=== PATIENT | male | born 1985 | race Two or more races ===

== ENCOUNTER 2020-06-15 14:21 | Emergency (ER) | payer OTHER ==
[2020-06-15] MEDS ORDERED: NORMAL SALINE 1000 ML 1,000 ML IV ONE ×2 (14:41→16:23)
[2020-06-15] MEDS ORDERED: ONDANSETRON HCL INJ/PF 4 MG/2 ML SDV IV ONE (14:45)
--- NOTE | 2020-06-15 14:46 | ER Document Report ---
ED General - General Chief Complaint: Heat Exposure Stated Complaint: BODY CRAMPING Primary Care Provider: CELIA FERNANDEZ PA-C [Primary Care Provider] - Follow up as needed Mode of Arrival: Medic Information source: Patient, Emergency Med Personnel Notes: Patient is a 35-year-old male presenting to the emergency department chief complaint of heat cramps. 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 Patient states it is intermittent patient states he has drank water Pedialyte and Gatorade and was given a water bath and ice to the groin and axilla. Patient denies travel history trauma history sick contacts bad food exposure. Patient denies any recent heat exposure. Patient states that despite all the fluid intake he has not urinated in several hours. TRAVEL OUTSIDE OF THE [place] IN LAST 30 DAYS: No - HPI Onset: Just prior to arrival Onset/Duration: Persistent Quality of pain: Cramping Severity: Moderate Pain Level: 4 Associated symptoms: None Exacerbated by: Movement Relieved by: Denies Similar symptoms previously: No Recently seen / treated by doctor: No - Related Data Allergies/Adverse Reactions: No Known Allergies Allergy (Unverified 06/15/20 15:10) Past Medical History - General Information source: Patient - Social History Smoking Status: Current Every Day Smoker Cigarette use (# per day): Yes Chew tobacco use (# tins/day): No Smoking Education Provided: Yes Frequency of alcohol use: Rare Drug Abuse: Marijuana Family History: Reviewed & Not Pertinent Patient has suicidal ideation: No Patient has homicidal ideation: No Musculoskeletal Medical History: Reports Hx Musculoskeletal Trauma Psychiatric Medical History: Reports: Hx Post Traumatic Stress Disorder Review of Systems - Review of Systems Constitutional: No symptoms reported EENT: No symptoms reported Cardiovascular: No symptoms reported Respiratory: No symptoms reported Gastrointestinal: See HPI Genitourinary: Retention Male Genitourinary: No symptoms reported Musculoskeletal: See HPI Skin: No symptoms reported Hematologic/Lymphatic: No symptoms reported Neurological/Psychological: No symptoms reported Physical Exam - Vital signs Vitals: Temp 97.8 F 06/15/20 14:21 - Notes Notes: PHYSICAL EXAMINATION: GENERAL: Patient is a 35-year-old male in obvious distress secondary to severe muscle cramps HEAD: Atraumatic, normocephalic. EYES: Pupils equal round and reactive to light, extraocular movements intact, sclera anicteric, conjunctiva are normal. ENT: nares patent, oropharynx clear without exudates. Moist mucous membranes. NECK: Normal range of motion, supple without lymphadenopathy, no appreciable JVD LUNGS: Lungs clear to auscultation bilaterally and equal. No wheezes rales or rhonchi. HEART: Tachycardic rate and rhythm without murmurs ABDOMEN: Soft, diffusely tender, normal bowel sounds. No guarding, no rebound. No masses appreciated. EXTREMITIES: Active full range of motion, no pitting or edema. No cyanosis. 2+ pulses x4 however patient is experiencing intermittent muscle cramps to upper and lower extremities. NEUROLOGICAL: No focal neurological deficits. Moves all extremities spontaneously and on command. SKIN: Warm, Dry, and intact. Normal turgor, no rashes or lesions noted. Course - Re-evaluation Re-evalutation: 06/15/20 16:24 On reevaluation the patient is sitting up in bed much more alert is having better movement to the extremities he is still cramping. Patient is tolerated p.o. fluids and will be trying to eat a sandwich. Patient has received 2 bags IV normal saline and will receive a third at 125 cc an hour labs will be redrawn at 1700 for evaluation of improvement. 06/15/20 18:28 Patient has been reevaluated multiple times while in the emergency department. Patient has been maintained on a telemetry monitor and has gradually improved his alertness as well as range of motion to extremities. Patient has tolerated both food and fluids p.o. Reevaluation of the patient's labs do show a gradual improvement patient is alert oriented in no acute distress family member at bedside is likewise responsible and I feel comfortable discharging the patient at this point in time. Patient is agreeable with discharge understands not to go out into the heat over the next several days increase fluid hydration and return for worsening symptoms. Patient is stable at time of discharge. - Vital Signs Vital signs: Temp Pulse Resp BP Pulse Ox 97.8 F 18 142/81 H 99 06/15/20 15:04 06/15/20 17:02 06/15/20 17:02 06/15/20 17:02 - Laboratory Result Diagrams: 06/15/20 17:03 06/15/20 17:03 Laboratory results interpreted by me: 06/15/20 06/15/20 06/15/20 15:00 15:00 16:15 WBC Lymph % (Auto) Absolute Neuts (auto) Seg Neutrophils % Sodium Carbon Dioxide 19 L BUN 22 H Creatinine 2.08 H Est GFR ( Amer) 44 L Est GFR (MDRD) Non-Af 37 L Lactic Acid 7.3 H Calcium 10.3 H Total Bilirubin 2.2 H Creatine Kinase 309 H Total Protein 8.6 H Albumin 5.3 H Urine Blood SMALL H 06/15/20 06/15/20 17:03 17:03 WBC 11.7 H Lymph % (Auto) 9.2 L Absolute Neuts (auto) 9.6 H Seg Neutrophils % 82.0 H Sodium 135.7 L Carbon Dioxide BUN 22 H Creatinine 1.60 H Est GFR ( Amer) Est GFR (MDRD) Non-Af 50 L Lactic Acid Calcium Total Bilirubin 2.0 H Creatine Kinase Total Protein Albumin Urine Blood - Diagnostic Test Radiology reviewed: Image reviewed, Reports reviewed - EKG Interpretation by Me EKG shows normal: Sinus rhythm Rate: Normal Rhythm: NSR When compared to previous EKG there are: Previous EKG unavailable Critical Care Note - Critical Care Note Total time excluding time spent on procedures (mins): 35 Comments: Please allow 35 minutes of critical care time spent obtaining history from patient or surrogate, discussions with consultants, development of treatment plan with patient or surrogate, evaluation of patient's response to treatment, examination of patient. This also includes ordering and reviewing laboratory, EKG and / or radiologic studies, performing and reassessing treatments and interventions as well as reviewing previous visits and old charts. This is exclusive of separately billable procedures. Discharge - Discharge Clinical Impression: Heat exhaustion Qualifiers: Encounter type: initial encounter Qualified Code(s): T67.5XXA - Heat exhaustion, unspecified, initial encounter Condition: Stable Disposition: HOME, SELF-CARE Additional Instructions: Heat Exhaustion You have had an episode of heat exhaustion. The body overheats when sweating fails to keep the temperature down due to high humidity, exercise, or dehydration. Typical symptoms may include muscle cramps, dizziness, nausea, and even chilling. You should rest and drink plenty of fluids. Do not resume any activities until you feel fully back to normal. To prevent a recurrence, avoid working in the heat. Always drink plenty of fluids when the weather is hot, particularly if you will be exercising. Use extra caution when the humidity is high. If you feel symptoms of heat illness, douse yourself with cold water and rest in the shade. Call the doctor if you develop confusion, repeated vomiting, severe headache, severe muscle spasms, fever, chest pain or shortness of breath. Forms: Return to Work Referrals: CELIA FERNANDEZ PA-C [Primary Care Provider] - Follow up as needed
--- NOTE | 2020-06-15 15:15 | RADIOLOGY REPORT (SQ) ---
EXAM DESCRIPTION: CHEST SINGLE VIEW IMAGES COMPLETED DATE/TIME: 06/15/2020 3:04 pm REASON FOR STUDY: sob COMPARISON: None. EXAM PARAMETERS: NUMBER OF VIEWS: One view. TECHNIQUE: An AP view of the chest was obtained. RADIATION DOSE: NA LIMITATIONS: None. FINDINGS: LUNGS AND PLEURA: No consolidation, pleural effusion or pneumothorax. MEDIASTINUM AND HILAR STRUCTURES: No mediastinal or hilar contour abnormality. HEART AND VASCULAR STRUCTURES: The cardiac silhouette and pulmonary vasculature are within normal franco its. BONES: No acute findings. HARDWARE: None in the chest. OTHER: No other finding. IMPRESSION: No acute cardiopulmonary process. TECHNICAL DOCUMENTATION: JOB ID: [id number] 2010 [employer]- All Rights Reserved Reading location - IP/workstation name: [email or web address]
[2020-06-15 15:16] LABS: ABSOLUTE BASOPHILS # (AUTO) 0.1 10^3/uL (0.0-0.2); ABSOLUTE LYMPHOCYTES (AUTO) 1.9 10^3/uL (0.5-4.7); ABSOLUTE MONOCYTES (AUTO) 0.8 10^3/uL (0.1-1.4); ABSOLUTE NEUT (AUTO) 6.6 10^3/uL (1.7-8.2); BASOPHILS % (AUTO) 0.7 % (0-2); EOSINOPHILS % (AUTO) 0.4 % (0-6); HEMOGLOBIN 15.6 g/dL (13.5-17.0); LYMPHOCYTES % (AUTO) 19.8 % (13-45); MEAN CORPUSCULAR HEMOGLOBIN 30.2 pg (27.0-33.4); MEAN CORPUSCULAR HGB CONC 35.4 g/dL (32.0-36.0); MEAN CORPUSCULAR VOLUME 85 fl (80-97); MONOCYTES % (AUTO) 8.5 % (3-13); PLATELET COUNT 317 10^3/uL (150-450); RED BLOOD COUNT 5.16 10^6/uL (4.35-5.55); RED CELL DISTRIBUTION WIDTH 13.3 % (11.5-14.0); SEGMENTED NEUTROPHILS % (AUTO) 70.6 % (42-78); TOTAL CELLS COUNTED % (AUTO) 100 %; WHITE BLOOD COUNT 9.4 10^3/uL (4.0-10.5)
[2020-06-15] MEDS ORDERED: MORPHINE SULFATE 10 MG/ML INJ IV ONE (15:17)
--- NOTE | 2020-06-15 15:18 | EKG REPORT ---
SEVERITY:- BORDERLINE ECG - SINUS RHYTHM PROBABLE LEFT ATRIAL ABNORMALITY : Confirmed by: Isaias Solano MD 15-Jun-2020 15:17:59
[2020-06-15 15:34] LABS: ALBUMIN 5.3 g/dL (3.5-5.0); ALKALINE PHOSPHATASE 62 U/L (38-126); ANION GAP 19 (5-19); ASPARTATE AMINO TRANSFERASE 32 U/L (17-59); BILIRUBIN,DIRECT 0.3 mg/dL (0.0-0.4); BILIRUBIN,TOTAL 2.2 mg/dL (0.2-1.3); BLOOD UREA NITROGEN 22 mg/dL (7-20); CALCIUM 10.3 mg/dL (8.4-10.2); CARBON DIOXIDE 19 mmol/L (22-30); CHLORIDE 100 mmol/L (98-107); CREATINE KINASE 309 U/L (55-170); GLUCOSE 106 mg/dL (75-110); TOTAL PROTEIN 8.6 g/dL (6.3-8.2)
[2020-06-15 15:37] LABS: ALCOHOL < 10 mg/dL (NONE DETECTED)
[2020-06-15 16:38] LABS: APPEARANCE,URINE SLIGHTLY-CLOUDY; BILIRUBIN,URINE NEGATIVE (NEGATIVE); COLOR,URINE YELLOW; GLUCOSE, URINE NEGATIVE (NEGATIVE); KETONES,URINE NEGATIVE (NEGATIVE); LEUKOCYTE ESTERASE,URINE NEGATIVE (NEGATIVE); NITRITE,URINE NEGATIVE (NEGATIVE); PROTEIN,URINE NEGATIVE (NEGATIVE); URINE SPECIFIC GRAVITY 1.016; UROBILINOGEN,URINE NEGATIVE mg/dL (<2.0)
[2020-06-15 16:46] LABS: URINE BARBITURATES SCREEN NEGATIVE; URINE BENZODIAZEPINES SCREEN NEGATIVE; URINE COCAINE SCREEN NEGATIVE; URINE MARIJUANA (THC) SCREEN NEGATIVE; URINE METHADONE SCREEN NEGATIVE; URINE PHENCYCLIDINE SCREEN NEGATIVE
[2020-06-15 16:47] LABS: URINE AMPHETAMINES SCREEN UNCONFIRMED POSITIVE
[2020-06-15 17:07] LABS: ADD MANUAL MICROSCOPIC YES
[2020-06-15 17:14] LABS: AMORPHOUS SEDIMENT,URINE RARE /HPF
[2020-06-15 17:16] LABS: ABSOLUTE LYMPHOCYTES (AUTO) 1.1 10^3/uL (0.5-4.7); ABSOLUTE NEUT (AUTO) 9.6 10^3/uL (1.7-8.2); BASOPHILS % (AUTO) 0.4 % (0-2); EOSINOPHILS % (AUTO) 0.1 % (0-6); HEMATOCRIT 42.8 % (37.9-51.0); HEMOGLOBIN 14.5 g/dL (13.5-17.0); LYMPHOCYTES % (AUTO) 9.2 % (13-45); MEAN CORPUSCULAR HEMOGLOBIN 28.9 pg (27.0-33.4); MEAN CORPUSCULAR HGB CONC 33.8 g/dL (32.0-36.0); MEAN CORPUSCULAR VOLUME 86 fl (80-97); MONOCYTES % (AUTO) 8.3 % (3-13); PLATELET COUNT 305 10^3/uL (150-450); RED BLOOD COUNT 4.99 10^6/uL (4.35-5.55); RED CELL DISTRIBUTION WIDTH 13.1 % (11.5-14.0); TOTAL CELLS COUNTED % (AUTO) 100 %; WHITE BLOOD COUNT 11.7 10^3/uL (4.0-10.5)
[2020-06-15 17:32] LABS: ALBUMIN 4.6 g/dL (3.5-5.0); ALKALINE PHOSPHATASE 66 U/L (38-126); ANION GAP 10 (5-19); ASPARTATE AMINO TRANSFERASE 27 U/L (17-59); BILIRUBIN,DIRECT 0.3 mg/dL (0.0-0.4); BLOOD UREA NITROGEN 22 mg/dL (7-20); CALCIUM 9.2 mg/dL (8.4-10.2); CARBON DIOXIDE 23 mmol/L (22-30); CHLORIDE 103 mmol/L (98-107); GLUCOSE 104 mg/dL (75-110); POTASSIUM 4.2 mmol/L (3.6-5.0); TOTAL PROTEIN 7.5 g/dL (6.3-8.2)
[2020-06-15 21:44] VITALS: BP 124/77
== END 2020-06-15 20:00 | disposition home or self-care (01) ==
LOC: ER 14:21
DX: T67.5XXA Heat exhaustion, unspecified, initial encounter (principal); M79.10 Myalgia, unspecified site; F17.210 Nicotine dependence, cigarettes, uncomplicated; X30.XXXA Exposure to excessive natural heat, initial encounter; Y93.H9 Activity, other involving exterior property and land maintenance, building and construction
CPT/HCPCS: 93005; 99285; 96361; 96374; 96375; 36415; 80307 ×2; 82550; 83605; 83690; 85025; 87070; 80053; 81001; 71045; 93010; J2270; J2405; J7030

== ENCOUNTER 2020-07-21 22:01 | Emergency (ER) | payer OTHER ==
--- NOTE | 2020-07-21 23:39 | ER Document Report ---
ED Medical Screen (RME) - General Chief Complaint: Finger Injury Stated Complaint: FINGER LACERATION Time Seen by Provider: 07/21/20 23:33 Primary Care Provider: CELIA FERNANDEZ PA-C [Primary Care Provider] - Follow up as needed Mode of Arrival: Ambulatory Information source: Patient Notes: 35-year-old male presented to ED for a large laceration to his right middle finger after he got it caught between a [place] and a tractor between 6 and 7 PM. He states he was helping a friend landscape when trying to rotate a [place] with a tractor when the mold removed and caught his finger between the tractor and the [place] crushing his finger. He states he was just retired from the recently after 15 years for PTSD TBI and nerve damage and multiple other complaints. He does smoke 5 cigarettes a day occasionally drinks and does not use any illicit drugs. I have informed the charge nurse that he has a very large laceration to the right middle finger and he is right-handed and he was injured between 6 and 7 PM tonight. I have also informed her that I have ordered him a [place] as well as an x-ray I have greeted and performed a rapid initial assessment of this patient. A comprehensive ED assessment and evaluation of the patient, analysis of test results and completion of medical decision making process will be conducted by an additional ED providers. TRAVEL OUTSIDE OF THE [place] IN LAST 30 DAYS: No - Related Data Allergies/Adverse Reactions: No Known Allergies Allergy (Unverified 06/15/20 15:10) Past Medical History Musculoskeltal Medical History: Reports Hx Musculoskeletal Trauma Psychiatric Medical History: Reports: Hx Post Traumatic Stress Disorder Physical Exam - Vital signs Vitals: Temp Pulse Resp BP Pulse Ox 97.8 F 66 18 117/67 99 07/21/20 23:32 07/21/20 23:32 07/21/20 23:32 07/21/20 23:32 07/21/20 23:32 Course - Vital Signs Vital signs: Temp Pulse Resp BP Pulse Ox 97.8 F 66 18 117/67 99 07/21/20 23:32 07/21/20 23:32 07/21/20 23:32 07/21/20 23:32 07/21/20 23:32 Doctor's Discharge - Discharge Referrals: REBECCA,MARGERET, PA-C [Primary Care Provider] - Follow up as needed
[2020-07-21] MEDS ORDERED: HYDROCODONE/ACETAMINOPHEN 5-325 MG TABLET PO ONE (23:41)
--- NOTE | 2020-07-22 00:41 | RADIOLOGY REPORT (SQ) ---
EXAM DESCRIPTION: Right third finger x-ray; Three views CLINICAL HISTORY: 35 years Male, Right middle finger crushed COMPARISON: None. FINDINGS: Negative for acute fracture, dislocation, or radiopaque foreign body. There is soft tissue irregularity of the right third digit surrounding the middle interphalangeal joint. IMPRESSION: No acute osseous findings. Soft tissue irregularity surrounds the right thyroid middle interphalangeal joint.
[2020-07-22] MEDS ORDERED: DIPH/PERTUSS(ACELL)/TETANUS VAC/PF 0.5 ML SYR (>=10YO) IM ONE (03:47)
--- NOTE | 2020-07-22 03:48 | ER Document Report ---
ED General - General Chief Complaint: Finger Injury Stated Complaint: FINGER LACERATION Time Seen by Provider: 07/21/20 23:33 Primary Care Provider: CELIA FERNANDEZ PA-C [Primary Care Provider] - Follow up as needed Mode of Arrival: Ambulatory TRAVEL OUTSIDE OF THE [place] IN LAST 30 DAYS: No - HPI Notes: Patient is a 35-year-old male who presents with an injury to his right middle finger that occurred just prior to arrival. Patient states he was helping a friend landscape and was trying to turn a [place]. He states his finger got caught between a [place] and a tractor. Patient denies any other symptoms or injuries. He is an everyday smoker, occasionally drinks alcohol but denies any recreational drugs. Patient is unsure when his last tetanus vaccine was. - Related Data Allergies/Adverse Reactions: No Known Allergies Allergy (Verified 07/22/20 00:42) Past Medical History - General Information source: Patient - Social History Smoking Status: Current Every Day Smoker Frequency of alcohol use: Occasional Drug Abuse: None Family History: Reviewed & Not Pertinent Musculoskeletal Medical History: Reports Hx Musculoskeletal Trauma Psychiatric Medical History: Reports: Hx Post Traumatic Stress Disorder Review of Systems - Review of Systems Constitutional: No symptoms reported EENT: No symptoms reported Cardiovascular: No symptoms reported Respiratory: No symptoms reported Gastrointestinal: No symptoms reported Genitourinary: No symptoms reported Male Genitourinary: No symptoms reported Musculoskeletal: See HPI Skin: No symptoms reported Hematologic/Lymphatic: No symptoms reported Neurological/Psychological: No symptoms reported Physical Exam - Vital signs Vitals: Temp Pulse Resp BP Pulse Ox 97.8 F 66 18 117/67 99 07/21/20 23:32 07/21/20 23:32 07/21/20 23:32 07/21/20 23:32 07/21/20 23:32 - Notes Notes: PHYSICAL EXAMINATION: GENERAL: Well-appearing, well-nourished and in no acute distress. HEAD: Atraumatic, normocephalic. EYES: sclera anicteric, conjunctiva are normal. ENT: Moist mucous membranes. NECK: Normal range of motion LUNGS: Normal work of breathing HEART: 2+ radial pulses bilaterally EXTREMITIES: large laceration to the volar aspect on the right middle finger. Full ROM, sensation intact. No pitting or edema. No cyanosis. NEUROLOGICAL: No focal neurological deficits. Moves all extremities spontaneously and on command. PSYCH: Normal mood, normal affect. SKIN: Warm, Dry, normal turgor, no rashes or lesions noted. Course - Re-evaluation Re-evalutation: Patient is a 35-year-old male who presents with a laceration to his right middle finger. Vitals are within normal limits. On exam, there is a 3.5 cm laceration to the medial, volar aspect of the right middle finger. Laceration repair was performed and tolerated well with no complications. Patient will be discharged home with a prescription for Keflex. Patient instructed to have sutures removed in 7 to 10 days by either primary care or return to the ED. Return precautions and follow-up instructions given. Patient understands and is in agreement with plan. - Vital Signs Vital signs: Temp Pulse Resp BP Pulse Ox 97.8 F 55 L 14 145/97 H 99 07/22/20 05:45 07/22/20 05:45 07/22/20 05:45 07/22/20 05:45 07/22/20 05:45 Procedures - Laceration/Wound Repair Right Volar Finger 3rd digit Wound length (cm): 3.5 Wound's Depth, Shape: Superficial Anesthetic type: 1% Lidocaine Wound Repaired With: Sutures Suture Size/Type: 4:0 Number of Sutures: 7 Notes: The wound is 3.5cm in length to the volar aspect of the right middle finger. The wound was copiously irrigated with normal saline and surgical cleanser. The wound was explored for foreign bodies and none were found. The wound was prepped and draped in the normal sterile fashion. The wound was anesthetized using 1% lidocaine. The edges were reapproximated using 4-0 ethilon. Bleeding was well controlled and the patient tolerated the procedure well. Discharge - Discharge Clinical Impression: Finger laceration Qualifiers: Encounter type: initial encounter Finger: middle finger Damage to nail status: without damage Foreign body presence: without foreign body Laterality: right Qualified Code(s): S61.212A - Laceration without foreign body of right middle finger without damage to nail, initial encounter Condition: Good Disposition: HOME, SELF-CARE Additional Instructions: Laceration Care Your laceration has been sutured to keep the skin edges aligned during healing. The time of suture removal depends on the nature and location of your cut. Please follow the care instructions the doctor has outlined for you and return for further care, according to the schedule you've been given. Keep the wound and dressing clean. Unless you were told otherwise, you may shower daily, blotting the wound dry with a clean, unused towel. At other times, If the dressing gets wet or blood soaked, remove it and blot the wound dry, then reapply a new dressing. Unless you were instructed otherwise, dressings should be changed at least daily. If any signs of infection occur (swelling, redness, increasing tenderness, red streaks, tender lumps in the armpit or groin above the laceration, or fever), see the doctor immediately. Prophylactic Antibiotic The antibiotics which have been prescribed are designed to decrease the risk of infection. Only certain types of wounds benefit from this -- the typical cut, scrape, or burn DOES NOT require antibiotics. Of course, infection can still occur despite the use of prophylactic antibiotics. Your wound will heal with less chance of an infectious complication if you take the medication as directed. The most important dose is the FIRST dose, so don't delay filling the prescription! Prescriptions: Cephalexin Monohydrate [Keflex 500 mg Capsule] 500 mg PO TID 5 Days #15 capsule Referrals: CELIA FERNANDEZ PA-C [Primary Care Provider] - Follow up as needed
[2020-07-22] MEDS ORDERED: LIDOCAINE 1% INJ-PF (10 MG/ML) 30 ML SDV INJ ONE (04:32)
[2020-07-22 05:46] VITALS: BP 145/97
== END 2020-07-22 05:50 | disposition home or self-care (01) ==
LOC: ER 22:01
DX: S61.212A Laceration without foreign body of right middle finger without damage to nail, initial encounter (principal); W23.0XXA Caught, crushed, jammed, or pinched between moving objects, initial encounter; Y93.H2 Activity, gardening and landscaping; F17.200 Nicotine dependence, unspecified, uncomplicated; Z23 Encounter for immunization
CPT/HCPCS: 12002; 99283; 96372; 73140; 90715; J3490